=== PATIENT | female | born 1995 | race Hispanic/Latino ===

== ENCOUNTER → 2023-07-13 | Emergency (ER) | payer SELFPAY ==
[~2023-07-13] MED LIST: CEFTRIAXONE 1000 MG/VIAL ONE; IBUPROFEN 400 MG TAB ONE; NA CHLORIDE 0.9% 1,000 ML ONE; OSELTAMIVIR 75 MG CAP PO ONE; POTASSIUM 25 MEQ EFFERV TAB ONE
[2023-07-13 18:58] LABS: Absolute Lymphocytes (CBC) 0.5 K/uL (0.7-4.9); Hematocrit 40.3 % (36.0-45.0); Lymphocytes % 4.3 % (15.3-44.8); MCV 79.3 fL (80-100); MPV 10.3 fL (7.6-11.3); Platelets 170 thou/uL (152-406); RBC Red Blood Cell Count 5.07 M/uL (3.86-4.86)
[2023-07-13 19:02] LABS: Specific Gravity 1.037 (1.005-1.030)
[2023-07-13 19:04] LABS: Specific Gravity > 1.030 (1.005-1.030); Urine Bacteria <20 /HPF (<20); Urine Bilirubin NEGATIVE (Negative); Urine Blood Trace (Negative); Urine Clarity Extremely Turbid (Clear); Urine Color Yellow (Yellow); Urine Glucose NEGATIVE (Negative); Urine Mucus 2+ /HPF (None Seen); Urine Protein 2+ (Negative); Urine RBC <5 /HPF (None Seen); Urine Urobilinogen 1+ (Normal)
[2023-07-13 19:11] LABS: SARS-CoV-2 Antigen Rapid Res Negative (Negative)
[2023-07-13 19:16] LABS: Albumin 3.7 g/dL (3.4-5.0); Bilirubin Total 0.4 mg/dL (0.2-1.0); Potassium 3.2 mEq/L (3.5-5.1); Protein, Total 7.9 g/dL (6.4-8.2)
[2023-07-13 20:11] LABS: Blood Morphology Comment NOT SEEN (NOT SEEN); Platelet Estimate ADEQ; White Blood Cell Scan OK (OK)
--- NOTE | 2023-07-14 00:16 | ER ---
Nurse's Notes [facility] Name: Nataliia Cornell Age: 28 yrs Sex: Female : 1995 Arrival Date: 07/13/2023 Time: 17:05 Bed 10 Private MD: Diagnosis: Influenza A;UTI/ Urinary tract infection, site not specified Presentation: 07/13 17:13 Chief complaint: Patient states: Started yesterday, body aches, dizzy, cough, N/V, body ko1 aches, fever Tmax 104 took tylenol earlier today. Coronavirus screen: chills, congestion, cough unrelated to allergies, fatigue, fever, headache, muscle pain, nausea, runny nose, sore throat, vomiting. Client presents with at least one sign or symptom that may indicate coronavirus-19. Standard/surgical mask placed on the client. Ebola Screen: No symptoms or risks identified at this time. Initial Sepsis Screen: Does the patient meet any 2 criteria? Temp <36.0*C (96.8*F)) or > 38.3*C (100.9*F). HR > 90 bpm. Yes Does the patient have a suspected source of infection? No. Patient's initial sepsis screen is negative. Risk Assessment: Do you want to hurt yourself or someone else? Patient reports no desire to harm self or others. Onset of symptoms was July 12, 2023 at 08:00. 17:13 Method Of Arrival: Ambulatory ko1 17:13 Acuity: DARCIE 3 ko1 Triage Assessment: 17:15 General: Appears ill, Behavior is calm, cooperative, appropriate for age. Pain: ko1 Complains of pain in generalized body aches. Historical: - Allergies: 17:15 No Known Allergies; ko1 - Home Meds: 17:15 None [Active]; ko1 - PMHx: 17:15 None; ko1 - PSHx: 17:15 None; ko1 - Immunization history:: Adult Immunizations unknown. - Social history:: Smoking status: Patient denies any tobacco usage or history of. Screenin:57 [facility] ED Fall Risk Assessment (Adult) History of falling in the last 3 months, me1 including since admission No falls in past 3 months (0 pts) Confusion or Disorientation No (0 pts) Intoxicated or Sedated No (0 pts) Impaired Gait No (0 pts) Mobility Assist Device Used No (0 pt) Altered Elimination No (0 pt) Score/Fall Risk Level 0 - 2 = Low Risk Maintained a safe environment, Provided non-skid footwear, Hourly rounding (assess needs \T\ fall precautionary measures) done. Abuse screen: Denies threats or abuse. Nutritional screening: No deficits noted. Tuberculosis screening: No symptoms or risk factors identified. Assessment: 19:00 General: Appears uncomfortable, ill, well groomed, well developed, well nourished, me1 Behavior is calm, cooperative, appropriate for age, Reports chills for fever for feeling ill for fatigue for Started yesterday, body aches, dizzy, cough, N/V, body aches, fever Tmax 104 took tylenol earlier today. Pain: Complains of pain in generalized Pain currently is 4 out of 10 on a pain scale. Quality of pain is described as aching, Pain began gradually, Is intermittent. 19:00 Neuro: Level of Consciousness is awake, alert, obeys commands, Oriented to person, me1 place, time, situation, Appropriate for age. Neuro: Reports dizziness, since yesterday. Cardiovascular: Capillary refill < 3 seconds Patient's skin is warm and dry. Respiratory: Reports cough that is persistent Started yesterday, body aches, dizzy, cough, N/V, body aches, fever Tmax 104 took tylenol earlier today Airway is patent Respiratory effort is even, unlabored, Respiratory pattern is regular, symmetrical. GI: Reports nausea. Vital Signs: 17:13 BP 103 / 70; Pulse 154; Resp 16; Temp 103.2; Pulse Ox 96% ; ko1 18:51 Weight 58.06 kg; cp4 22:25 BP 79 / 47; Pulse 107; Resp 19; Pulse Ox 98% on R/A; me1 22:25 BP 95 / 61; Pulse 106; Resp 19; Pulse Ox 95% on R/A; me1 07/14 00:07 BP 90 / 63; Pulse 105; Resp 17; Pulse Ox 96% on R/A; me1 00:16 Temp 98.7; sb4 00:22 BP 98 / 63; Pulse 102; Resp 16; Temp 98.8(TE); Pulse Ox 100% on R/A; jb4 ED Course: 07/13 17:07 Patient arrived in ED. im 17:09 Lety Roque PA-C is PHCP. sb4 17:09 Mahesh Mayes MD is Attending Physician. sb4 17:13 Mckenna Felton, GENARO is Primary Nurse. ko1 17:15 Triage completed. ko1 17:15 Arm band placed on right wrist. Patient placed in waiting room, Patient notified of ko1 wait time. 18:51 Test, Urine Sent. cp4 18:51 UAM Sent. cp4 18:51 Flu Sent. cp4 18:51 SARS RAPID Sent. cp4 18:51 Blood Culture Adult (2) Sent. cp4 18:51 CBC with Diff Sent. cp4 18:51 CMP Sent. cp4 18:51 Lactate w/ 2H reflex if indic. Sent. cp4 22:57 Allergy band placed. Bed in low position. Side rails up X 1. Provided Education on: me1 POC. Verbalized understanding.. 22:57 No provider procedures requiring assistance completed. me1 07/14 00:28 IV discontinued, intact, bleeding controlled, No redness/swelling at site. Pressure jb4 dressing applied. Administered Medications: 07/13 19:04 Drug: Ibuprofen PO 800 mg PO once Route: PO; cp4 21:34 Follow up: Response: No adverse reaction me1 19:04 Drug: NS 0.9% IV (30 ml/kg) 30 ml/kg IV at bolus once; Sepsis Protocol Route: IV; Rate: cp4 bolus; Site: right antecubital; 21:34 Follow up: IV Status: Completed infusion me1 19:41 Drug: Oseltamivir PO 75 mg PO once Route: PO; me1 21:34 Follow up: Response: No adverse reaction me1 19:41 Drug: Rocephin IV 1 grams IV at calculated rate once; Given slow IV push per pharmacy me1 instructions Route: IV; Rate: calculated rate; Site: right antecubital; 21:34 Follow up: Response: No adverse reaction me1 19:43 Drug: Potassium PO Effervescent Tablet 50 mEq PO once; dissolve in 4 ounces of water or me1 juice Route: PO; 21:34 Follow up: Response: No adverse reaction me1 22:30 Drug: NS 0.9% IV 1000 ml IV at 1 bolus Per protocol; 1000 mL bolus Route: IV; Rate: 1 me1 bolus; Site: right antecubital; 07/14 00:06 Follow up: IV Status: Completed infusion me1 Medication: 07/13 22:58 VIS not applicable for this client. me1 Outcome: 07/14 00:15 Discharge ordered by . sb4 00:28 Discharged to home ambulatory, with family, jb4 00:28 Condition: stable 00:28 Discharge instructions given to patient, Instructed on discharge instructions, follow up and referral plans. medication usage, Demonstrated understanding of instructions, follow-up care, medications, Prescriptions given X 2, 00:28 Patient left the ED. jb4 Signatures: Deandre Cuevas RN RN jb4 Mckenna Felton RN RN ko1 Lety Roque, PA-C PA-C sb4 Ijeoma Lopez Michelle, RN RN me1 Natasha Farfan cp4 Corrections: (The following items were deleted from the chart) 07/13 22:54 17:13 Chief complaint: Patient states: Started yesterday, body aches, dizzy, cough, me1 N/V, body aches, fever Tmax 104 took tylenol earlier today ko1 07/14 00:28 00:22 Pulse 102bpm; Resp 16bpm; Pulse Ox 100% RA; Temp 98.8F Temporal; jb4 jb4
--- NOTE | 2023-07-14 00:16 | EDPHYS ---
Physician Documentation [facility] Name: Nataliia Cornell Age: 28 yrs Sex: Female : 1995 Arrival Date: 07/13/2023 Time: 17:05 Bed 10 Private MD: ED Physician Mahesh Mayes HPI: 07/13 17:20 This 28 yrs old Female presents to ER via Ambulatory with complaints of Flu Symptoms. sb4 17:20 The patient or guardian reports cough, flu symptoms, arthralgias, low-grade fever, sb4 myalgias, no appetite. Onset: The symptoms/episode began/occurred yesterday. Associated signs and symptoms: Pertinent positives: fever, nausea, sore throat, vomiting, Pertinent negatives: chest pain. The patient has not experienced similar symptoms in the past, but family has similar symptoms. The patient has been recently seen by a physician: the patient's primary care provider, yesterday. 17:22 child tested positive for flu. saw PCP yesterday, had 2 shots of unknown medication and sb4 given prescribed for antiemetic. Historical: - Allergies: 17:15 No Known Allergies; ko1 - Home Meds: 17:15 None [Active]; ko1 - PMHx: 17:15 None; ko1 - PSHx: 17:15 None; ko1 - Immunization history:: Adult Immunizations unknown. - Social history:: Smoking status: Patient denies any tobacco usage or history of. ROS: 17:20 Cardiovascular: Negative for chest pain, palpitations, and edema, sb4 17:20 Constitutional: Positive for body aches, chills, fatigue, fever, malaise, 17:20 Respiratory: Positive for shortness of breath, 17:20 All other systems are negative, Exam: 17:20 Head/Face: Normocephalic, atraumatic. Eyes: Extra-ocular motions intact. Periorbital sb4 areas with no swelling, redness, or edema. ENT: Mucous membranes moist. Respiratory: Lungs have equal breath sounds bilaterally, clear to auscultation and percussion. No rales, rhonchi or wheezes noted. No increased work of breathing, no retractions or nasal flaring. Abdomen/GI: Soft, non-tender, no distension. MS/ Extremity: Pulses equal, no cyanosis. Neurovascular intact. Full, normal range of motion. Neuro: Awake and alert, GCS 15, oriented to person, place, time, and situation. Motor strength 5/5 in all extremities. Sensory grossly intact. 17:20 Constitutional: The patient appears alert, awake, obviously ill, uncomfortable, 17:20 Cardiovascular: Rate: tachycardic, Rhythm: regular, Pulses: no pulse deficits are appreciated, Heart sounds: normal, 17:20 Skin: Appearance: normal except for affected area, Temperature: warm, Vital Signs: 17:13 BP 103 / 70; Pulse 154; Resp 16; Temp 103.2; Pulse Ox 96% ; ko1 18:51 Weight 58.06 kg; cp4 22:25 BP 79 / 47; Pulse 107; Resp 19; Pulse Ox 98% on R/A; me1 22:25 BP 95 / 61; Pulse 106; Resp 19; Pulse Ox 95% on R/A; me1 07/14 00:07 BP 90 / 63; Pulse 105; Resp 17; Pulse Ox 96% on R/A; me1 00:16 Temp 98.7; sb4 00:22 BP 98 / 63; Pulse 102; Resp 16; Temp 98.8(TE); Pulse Ox 100% on R/A; jb4 MDM: 07/13 17:18 Patient medically screened. sb4 17:20 Differential Diagnosis: Influenza Upper Respiratory Infection Sinusitis Pharyngitis sb4 Viral Syndrome. 07/14 00:15 Data reviewed: vital signs, nurses notes, lab test result(s), radiologic studies, I sb4 have discussed the patient's presentation/case with the attending Emergency Department Physician; and as a result, I will discharge patient. Counseling: I had a detailed discussion with the patient and/or guardian regarding the historical points, exam findings, and any diagnostic results supporting the discharge/admit diagnosis, lab results, to return to the emergency department if symptoms worsen or persist or if there are any questions or concerns that arise at home. 17:53 ED course: vitals improved significantly after IV fluids, tylenol, tamiflu. she is sb4 feeling much better. patient is stable for discharge home. return precautions given, she understands. 07/13 17:19 Order name: Blood Culture Adult (2) sb4 07/13 17:19 Order name: CBC with Diff; Complete Time: 20:14 sb4 07/13 17:19 Order name: CMP; Complete Time: 19:17 sb4 07/13 17:19 Order name: Lactate w/ 2H reflex if indic.; Complete Time: 19:18 sb4 07/13 17:19 Order name: SARS RAPID; Complete Time: 19:12 sb4 07/13 17:19 Order name: Flu; Complete Time: 19:15 sb4 07/13 17:19 Order name: UAM; Complete Time: 19:08 sb4 07/13 17:19 Order name: Test, Urine; Complete Time: 19:04 sb4 07/13 19:08 Order name: Urine Culture EDMS 07/13 20:11 Order name: CBC Smear Scan; Complete Time: 20:14 EDMS 07/13 22:02 Order name: Lactate Sepsis 2 HR Follow-up; Complete Time: 22:04 EDMS 07/13 17:19 Order name: IV Saline Lock - Large Bore; Complete Time: 18:51 sb4 07/13 17:19 Order name: Labs collected and sent; Complete Time: 18:51 sb4 07/13 17:19 Order name: Vital Signs; Complete Time: 18:51 sb4 07/13 21:35 Order name: Misc. Order: vitals and repeat lactate; Complete Time: 00:22 sb4 Administered Medications: 07/13 19:04 Drug: Ibuprofen PO 800 mg PO once Route: PO; cp4 21:34 Follow up: Response: No adverse reaction me1 19:04 Drug: NS 0.9% IV (30 ml/kg) 30 ml/kg IV at bolus once; Sepsis Protocol Route: IV; Rate: cp4 bolus; Site: right antecubital; 21:34 Follow up: IV Status: Completed infusion me1 19:41 Drug: Oseltamivir PO 75 mg PO once Route: PO; me1 21:34 Follow up: Response: No adverse reaction me1 19:41 Drug: Rocephin IV 1 grams IV at calculated rate once; Given slow IV push per pharmacy me1 instructions Route: IV; Rate: calculated rate; Site: right antecubital; 21:34 Follow up: Response: No adverse reaction me1 19:43 Drug: Potassium PO Effervescent Tablet 50 mEq PO once; dissolve in 4 ounces of water or me1 juice Route: PO; 21:34 Follow up: Response: No adverse reaction me1 22:30 Drug: NS 0.9% IV 1000 ml IV at 1 bolus Per protocol; 1000 mL bolus Route: IV; Rate: 1 me1 bolus; Site: right antecubital; 07/14 00:06 Follow up: IV Status: Completed infusion me1 Disposition Summary: 07/14/23 00:15 Discharge Ordered Notes: Location: Home sb4 Problem: an ongoing problem sb4 Symptoms: have improved sb4 Condition: Stable sb4 Diagnosis - Influenza A sb4 - UTI/ Urinary tract infection, site not specified sb4 Followup: sb4 - With: Emergency Department - When: As needed - Reason: Trouble breathing, Worsening of condition Discharge Instructions: - Discharge Summary Sheet sb4 - Urinary Tract Infection, Adult, [id number] sb4 - Influenza, Adult, [id number] sb4 Forms: - Medication Reconciliation Form sb4 - Thank You Letter sb4 - Antibiotic Education sb4 - Prescription Opioid Use sb4 - Patient Portal Instructions sb4 - Leadership Thank You Letter sb4 Prescriptions: - Macrobid 100 mg Oral capsule - take 1 capsule ORAL route every 12 hours for 7 days; 14 capsule; Refills: 0, sb4 Product Selection Permitted - Tamiflu 75 mg Oral capsule - take 1 tablet ORAL route every 12 hours for 5 days; 10 tablet; Refills: 0, sb4 Product Selection Permitted Addendum: 07/17/2023 08:33 Co-signature as Attending Physician, Mahesh Mayes MD I reviewed the patient's care r n provided by the Advanced Practice Provider and agree with the diagnosis and treatment plan. Signatures: Dispatcher [employer] Mahesh Hernandez MD MD rn Oliver, Kathy RN RN Lety Pickens PAMaral PAJonahC sb4 Donna Freeman RN RN 1 Natasha Farfan 4
[2023-07-14 01:36] VITALS: BP 98/63; TEMP 98.8; O2SAT 100
== END ==
LOC: ER 17:05
DX: J10.1 Influenza due to other identified influenza virus with other respiratory manifestations (principal); Z11.52 Encounter for screening for COVID-19
CPT/HCPCS: 36415; 80053; 81001; 81025; 83605; 85025; 87040; 87086; 87088; 87804; 87811; 96361; 96365; 96366; 96375; 99284; J0696; J7030